=== PATIENT | male | born 1970 | race Caucasian/White ===

== ENCOUNTER 2016-09-28 10:00 | Emergency (ER) | payer SELFPAY ==
[~2016-09-28] VITALS: Ht 185.4 cm; Wt 90.0 kg
[~2016-09-28 10:00] MED LIST: Z.0.NO CURRENT MEDS
[2016-09-28 10:01] VITALS: BP 129/60; PULSE 69; RESP 17; TEMP 98.6; O2SAT 98
[2016-09-28] MEDS ORDERED: SODIUM CHLOR 0.9% 1000 ML INJ 1,000 ML IV SCH (10:31)
[2016-09-28] MEDS ORDERED: ONDANSETRON HCL 4 MG/2 ML VIAL IVP ONE (10:45)
[2016-09-28] MEDS ORDERED: SODIUM CHLORIDE 0.9% FLUSH 10 ML FLUSH IV FLUSH PRN (10:45)
[2016-09-28] MEDS ORDERED: MORPHINE SULFATE 4 MG/ML INJ IV PUSH ONE (10:45)
[2016-09-28 11:03] LABS: AUTOMATED NEUTROPHIL # 3.9 TH/MM3 (1.8-7.7); BASOPHIL % 0.5 % (0.0-2.0); EOSINOPHIL # 0.3 TH/MM3 (0-0.4); EOSINOPHIL % 5.9 % (0.0-4.0); HEMATOCRIT 40.7 % (39.0-51.0); HEMO FLAGS DIFF FINAL; LYMPH % 19.5 % (9.0-44.0); LYMPHOCYTE # 1.1 TH/MM3 (1.0-4.8); MEAN CORPUSCULAR HEMOGLOBIN 29.3 PG (27.0-34.0); MONO % 7.5 % (0.0-8.0); NEUT % 66.6 % (16.0-70.0); PLATELET COUNT 173 TH/MM3 (150-450); RED BLOOD COUNT 4.73 MIL/MM3 (4.50-5.90); RED CELL DISTRIBUTION WIDTH 13.7 % (11.6-17.2); WHITE BLOOD COUNT 5.8 TH/MM3 (4.0-11.0)
--- NOTE | 2016-09-28 11:08 | PD ---
HPI Chief Complaint: Abdominal Pain Time Seen by Provider: 10:24 Travel History International Travel<30 days: No Contact w/Intl Traveler<30days: No Traveled to known affect area: No History of Present Illness HPI Patient is a 46 year old male who presents to emergency room with complaints of right-sided flank pain with hematuria, reports that since 2 PM yesterday, he has been having intermittent flank pain. Patient reports that he has been feeling subjective fevers and chills, that he feels lightheaded. Denies any nausea or vomiting or constipation, patient denies history of kidney stones in the past. Patient denies dysuria, urinary urgency and frequency. PFSH Past Medical History Blood Disorders: No Cancer: No Cardiovascular Problems: No Endocrine: No Genitourinary: No Immune Disorder: No Musculoskeletal: No Neurologic: No Psychiatric: No Respiratory: No Past Surgical History Oral Surgery: Yes Family History Family Hypercholesterolemia: Yes Social History Alcohol Use: No Tobacco Use: No Substance Use: No Allergies-Medications (Allergen,Severity, Reaction): Coded Allergies: Garlic (Verified Allergy, Severe, 09/28/16) [place] Oil (Verified Allergy, Severe, 09/28/16) Reported Meds & Prescriptions Reported Meds & Active Scripts Active Ibuprofen 600 Mg Tab 600 Mg PO Q6H PRN Reported No Current Meds (Miscellaneous Medication) Misc Review of Systems General / Constitutional: No: Fever Eyes: No: Visual changes HENT: No: Headaches Cardiovascular: No: Chest Pain or Discomfort Respiratory: No: Shortness of Breath Gastrointestinal: Positive: Abdominal Pain, No: Nausea, Vomiting Genitourinary: Positive: Hematuria, Flank Pain, No: Dysuria Musculoskeletal: No: Pain Skin: No Rash Neurologic: No: Weakness Psychiatric: No: Depression Endocrine: No: Polydipsia Hematologic/Lymphatic: No: Easy Bruising Physical Exam Narrative GENERAL: Moderate distress SKIN: Focused skin assessment warm/dry. HEAD: Atraumatic. Normocephalic. EYES: Pupils equal and round. No scleral icterus. No injection or drainage. ENT: No nasal bleeding or discharge. Mucous membranes pink and moist. NECK: Trachea midline. No JVD. CARDIOVASCULAR: Regular rate and rhythm. No murmur appreciated. RESPIRATORY: No accessory muscle use. Clear to auscultation. Breath sounds equal bilaterally. GASTROINTESTINAL: Abdomen soft, non-tender, nondistended. Hepatic and splenic margins not palpable. Patient with right-sided flank pain on exam MUSCULOSKELETAL: No obvious deformities. No clubbing. No cyanosis. No edema. NEUROLOGICAL: Awake and alert. No obvious cranial nerve deficits. Motor grossly within normal limits. Normal speech. PSYCHIATRIC: Appropriate mood and affect; insight and judgment normal. Data Data Last Documented VS Vital Signs Date Time Temp Pulse Resp B/P Pulse Ox O2 Delivery O2 Flow Rate FiO2 09/28/16 10:01 98.6 69 17 129/60 98 Orders Complete Blood Count With Diff (09/28/16 10:31) Comprehensive Metabolic Panel (09/28/16 10:31) Lipase (09/28/16 10:31) Prothrombin Time / Inr (Pt) (09/28/16 10:31) Act Partial Throm Time (Ptt) (09/28/16 10:31) Urinalysis - C+S If Indicated (09/28/16 10:31) Ct Abd/Pel W/O Iv Contrast (09/28/16 10:31) Iv Access Insert/Monitor (09/28/16 10:31) Ecg Monitoring (09/28/16 10:31) Oximetry (09/28/16 10:31) Morphine Inj (Morphine Inj) (09/28/16 10:45) Ondansetron Inj (Zofran Inj) (09/28/16 10:45) Sodium Chlor 0.9% 1000 Ml Inj (Ns 1000 M (09/28/16 10:31) Sodium Chloride 0.9% Flush (Ns Flush) (09/28/16 10:45) Sodium Chlor 0.9% 1000 Ml Inj (Ns 1000 M (09/28/16 12:00) Labs Laboratory Tests Test 09/28/16 09/28/16 10:35 10:40 Urine Color YELLOW Urine Turbidity CLEAR Urine pH 6.0 Urine Specific [place] 1.035 Urine Protein 30 mg/dL Urine Glucose (UA) NEG mg/dL Urine Ketones 150 mg/dL Urine Occult Blood LARGE Urine Nitrite NEG Urine Bilirubin NEG Urine Urobilinogen 2.0 MG/DL Urine Leukocyte Esterase NEG Urine RBC /hpf Urine WBC 3 /hpf Urine Squamous Epithelial <1 /hpf Cells Urine Calcium Oxalate Crystals OCC /hpf Urine Mucus FEW /lpf Microscopic Urinalysis Comment CULT NOT INDICATED White Blood Count 5.8 TH/MM3 Red Blood Count 4.73 MIL/MM3 Hemoglobin 13.9 GM/DL Hematocrit 40.7 % Mean Corpuscular Volume 86.0 FL Mean Corpuscular Hemoglobin 29.3 PG Mean Corpuscular Hemoglobin 34.0 % Concent Red Cell Distribution Width 13.7 % Platelet Count 173 TH/MM3 Mean Platelet Volume 7.9 FL Neutrophils (%) (Auto) 66.6 % Lymphocytes (%) (Auto) 19.5 % Monocytes (%) (Auto) 7.5 % Eosinophils (%) (Auto) 5.9 % Basophils (%) (Auto) 0.5 % Neutrophils # (Auto) 3.9 TH/MM3 Lymphocytes # (Auto) 1.1 TH/MM3 Monocytes # (Auto) 0.4 TH/MM3 Eosinophils # (Auto) 0.3 TH/MM3 Basophils # (Auto) 0.0 TH/MM3 CBC Comment DIFF FINAL Differential Comment Prothrombin Time 12.1 SEC Prothromb Time International 1.1 RATIO Ratio Activated Partial 25.8 SEC Thromboplast Time Sodium Level 141 MEQ/L Potassium Level 3.6 MEQ/L Chloride Level 104 MEQ/L Carbon Dioxide Level 28.6 MEQ/L Anion Gap 8 MEQ/L Blood Urea Nitrogen 8 MG/DL Creatinine 0.74 MG/DL Estimat Glomerular Filtration 115 ML/MIN Rate Random Glucose 73 MG/DL Calcium Level 8.2 MG/DL Total Bilirubin 0.9 MG/DL Aspartate Amino Transf 66 U/L (AST/SGOT) Alanine Aminotransferase 43 U/L (ALT/SGPT) Alkaline Phosphatase 43 U/L Total Protein 6.7 GM/DL Albumin 3.8 GM/DL Lipase 188 U/L [facility] Medical Decision Making Medical Screen Exam Complete: Yes Emergency Medical Condition: Yes Interpretation(s) Vital Signs Date Time Temp Pulse Resp B/P Pulse Ox O2 Delivery O2 Flow Rate FiO2 09/28/16 10:01 98.6 69 17 129/60 98 Differential Diagnosis Pyelonephritis, cystitis, kidney stone, muscle skeletal pain, electrolyte abnormality Narrative Course 46-year-old male who presents to emergency room with complaints of right-sided flank pain with hematuria which started yesterday around 2 PM. Patient denies history of kidney stones in the past, denies any urinary urgency or frequency at this time. He does appear uncomfortable. Plan to obtain lab work, will obtain CT the abdomen and pelvis for evaluation of possible kidney stone. IV fluids as well as pain medications will be administered. Vital Signs Date Time Temp Pulse Resp B/P Pulse Ox O2 Delivery O2 Flow Rate FiO2 09/28/16 10:01 98.6 69 17 129/60 98 Laboratory Tests Test 09/28/16 09/28/16 10:35 10:40 Urine Color YELLOW (YELLW/STRAW) Urine Turbidity CLEAR (CLEAR) Urine pH 6.0 (5.0-8.5) Urine Specific [place] 1.035 (1.002-1.035) Urine Protein 30 mg/dL (NEG-TRACE) Urine Glucose (UA) NEG mg/dL (NEG) Urine Ketones 150 mg/dL (NEG) Urine Occult Blood LARGE (NEG) Urine Nitrite NEG (NEG) Urine Bilirubin NEG (NEG) Urine Urobilinogen 2.0 MG/DL (LESS THAN 2.0) Urine Leukocyte Esterase NEG (NEG) Urine RBC /hpf (0-3) Urine WBC 3 /hpf (0-5) Urine Squamous Epithelial <1 /hpf (0-5) Cells Urine Calcium Oxalate Crystals OCC /hpf (NONE) Urine Mucus FEW /lpf (OCC) Microscopic Urinalysis Comment CULT NOT INDICATED White Blood Count 5.8 TH/MM3 (4.0-11.0) Red Blood Count 4.73 MIL/MM3 (4.50-5.90) Hemoglobin 13.9 GM/DL (13.0-17.0) Hematocrit 40.7 % (39.0-51.0) Mean Corpuscular Volume 86.0 FL (80.0-100.0) Mean Corpuscular Hemoglobin 29.3 PG (27.0-34.0) Mean Corpuscular Hemoglobin 34.0 % Concent (32.0-36.0) Red Cell Distribution Width 13.7 % (11.6-17.2) Platelet Count 173 TH/MM3 (150-450) Mean Platelet Volume 7.9 FL (7.0-11.0) Neutrophils (%) (Auto) 66.6 % (16.0-70.0) Lymphocytes (%) (Auto) 19.5 % (9.0-44.0) Monocytes (%) (Auto) 7.5 % (0.0-8.0) Eosinophils (%) (Auto) 5.9 % (0.0-4.0) Basophils (%) (Auto) 0.5 % (0.0-2.0) Neutrophils # (Auto) 3.9 TH/MM3 (1.8-7.7) Lymphocytes # (Auto) 1.1 TH/MM3 (1.0-4.8) Monocytes # (Auto) 0.4 TH/MM3 (0-0.9) Eosinophils # (Auto) 0.3 TH/MM3 (0-0.4) Basophils # (Auto) 0.0 TH/MM3 (0-0.2) CBC Comment DIFF FINAL Differential Comment Prothrombin Time 12.1 SEC (9.8-11.6) Prothromb Time International 1.1 RATIO Ratio Activated Partial 25.8 SEC Thromboplast Time (24.3-30.1) Sodium Level 141 MEQ/L (136-145) Potassium Level 3.6 MEQ/L (3.5-5.1) Chloride Level 104 MEQ/L (98-107) Carbon Dioxide Level 28.6 MEQ/L (21.0-32.0) Anion Gap 8 MEQ/L (5-15) Blood Urea Nitrogen 8 MG/DL (7-18) Creatinine 0.74 MG/DL (0.60-1.30) Estimat Glomerular Filtration 115 ML/MIN Rate (>89) Random Glucose 73 MG/DL (74-106) Calcium Level 8.2 MG/DL (8.5-10.1) Total Bilirubin 0.9 MG/DL (0.2-1.0) Aspartate Amino Transf 66 U/L (15-37) (AST/SGOT) Alanine Aminotransferase 43 U/L (12-78) (ALT/SGPT) Alkaline Phosphatase 43 U/L (45-117) Total Protein 6.7 GM/DL (6.4-8.2) Albumin 3.8 GM/DL (3.4-5.0) Lipase 188 U/L (73-393) Last Impressions Abdomen/Pelvis CT 09/28/16 1031 Signed Impressions: Service Date/Time: September 11:00 - CONCLUSION: 1. Nonobstructing 7 x 6 x 9 mm calcified calculus in the inferior pole the right kidney. No additional renal calculi or evidence for obstructive uropathy. 2. Normal appendix. 1. Eduardo Allen MD All labs and studies reviewed with patient in detail. Patient was given a copy of his studies. he will follow up with pcp and urologist and will return to ER as needed Diagnosis Primary Impression: Kidney stone on right side Additional Impressions: Hematuria Dehydration Referrals: Mahesh Jefferson DO Patient Instructions: Narcotic given in the ED, General Instructions Departure Forms: Tests/Procedures, Work Release Enter return to work date: Sep 29, 2016 Additional Instructions: Please return to ER if symptoms worsen or progress Please follow up with Urologist as soon as possible, bring your radiology report to your doctor's office for follow up appointment Return to ER as needed Med/Other Pt SpecificInfo: Prescription(s) given Scripts Ibuprofen 600 Mg [id number] Mg PO Q6H PRN (Pain/Inflammation) #40 TAB Ref 0 Prov:Odalis Mccartney DO 09/28/16 Disposition: 01 DISCHARGE HOME Condition: Stable Odalis Mccartney DO Sep 28, 2016 11:08 Odalis Mccartney DO Sep 28, 2016 11:08
[2016-09-28 11:12] LABS: APTT (PATIENT) 25.8 SEC (24.3-30.1); INTERNATIONAL NORMALIZED RATIO 1.1 RATIO; PROTHROMBIN TIME - PATIENT 12.1 SEC (9.8-11.6)
[2016-09-28 11:14] LABS: ANION GAP 8 MEQ/L (5-15); AST (GOT) 66 U/L (15-37); BICARBONATE 28.6 MEQ/L (21.0-32.0); BLOOD UREA NITROGEN 8 MG/DL (7-18); CHLORIDE 104 MEQ/L (98-107); GLOMERULAR FILTRATION RATE 115 ML/MIN (>89); POTASSIUM 3.6 MEQ/L (3.5-5.1); SODIUM (NA) 141 MEQ/L (136-145)
[2016-09-28 11:16] LABS: ALT (GPT) 43 U/L (12-78)
[2016-09-28 11:18] LABS: ALKALINE PHOSPHATASE 43 U/L (45-117); TOTAL BILIRUBIN ADULT 0.9 MG/DL (0.2-1.0)
[2016-09-28 11:42] LABS: BLOOD, URINE LARGE (NEG); CALCIUM OXALATE CRYSTALS,URINE OCC /hpf; COMMENT (UR) CULT NOT INDICATED; CULTURE IF INDICATED CULT NOT INDICATED; GLUCOSE,URINE NEG (NEG); KETONE, URINE 150 mg/dL (NEG); MUCUS URINE FEW /lpf (OCC); NITRITE,URINE NEG (NEG); SQUAMOUS EPITHELIAL CELL URINE <1 /hpf (0-5); URINE COLOR YELLOW (YELLW/STRAW)
[2016-09-28] MEDS ORDERED: SODIUM CHLOR 0.9% 1000 ML INJ 1,000 ML IV ONE (12:00)
--- NOTE | 2016-09-28 12:10 | RADRPT ---
EXAM DATE/TIME: 09/28/2016 11:00 [facility] COMPARISON: No previous studies available for comparison. INDICATIONS : Lower abdominal pain and blood in urine. ORAL CONTRAST: No oral contrast ingested. RADIATION DOSE: 16.47 CTDIvol (mGy) MEDICAL HISTORY : None SURGICAL HISTORY : None. ENCOUNTER: Initial ACUITY: 2 days PAIN SCALE: 4/10 LOCATION: Bilateral lower quadrant TECHNIQUE: Volumetric scanning of the abdomen and pelvis was performed. Using automated exposure control and ad justment of the mA and/or kV according to patient size, radiation dose was kept as low as reasonably achievable to obtain optimal diagnostic quality images. FINDINGS: LOWER LUNGS: The visualized lower lungs are clear. LIVER: Homogeneous density without lesion. There is no dilation of the biliary tree. No calcified gallston es. SPLEEN: Normal size without lesion. PANCREAS: Within normal limits. KIDNEYS: Kidneys are symmetrical in size without evidence for contour deforming mass or hydronephrosis. There is a 7 x 6 x 9 mm calcified calculus in the inferior pole of the right kidney. The ureters are normal in caliber without evidence for radiopaque renal calculi. ADRENAL GLANDS: Within normal limits. VASCULAR: There is no aortic aneurysm. BOWEL/MESENTERY: Appendix is visualized and normal in appearance.. Bowel is grossly unremarkable without evidence for obstruction. ABDOMINAL WALL: Within normal limits. RETROPERITONEUM: Nonspecific subcentimeter retroperitoneal nodes extending caudally from the level of the SMA origin. These nodes do not meet CT size criteria but are notable for number. BLADDER: Bladder is decompressed without evidence for intraluminal calcified calculus. REPRODUCTIVE: Within normal limits. INGUINAL: There is no lymphadenopathy or hernia. MUSCULOSKELETAL: Within normal limits for patient age. CONCLUSION: 1. Nonobstructing 7 x 6 x 9 mm calcified calculus in the inferior pole the right kidney. No additiona l renal calculi or evidence for obstructive uropathy. 2. Normal appendix. 1. Eduardo Allen MD on September 28, 2016 at 11:36 Board Certified Radiologist. This report was verified electronically.
[2016-09-28] MEDS ORDERED: IBUP-232 PO (13:11)
[2016-09-28 13:35] VITALS: BP 116/86
== END 2016-09-28 13:42 | disposition home or self-care (01) ==
LOC: NEPE 10:00
DX: N20.0 Calculus of kidney (principal); E86.0 Dehydration
CPT/HCPCS: 74176; 80053; 81001; 83690; 85025; 85610; 85730; 96374; 96375; 99285; J2270; J2405; J7030

== ENCOUNTER 2016-10-17 15:37 | Emergency (ER) | payer OTHER ==
[~2016-10-17] VITALS: Ht 185.4 cm; Wt 100.0 kg
[~2016-10-17 15:37] MED LIST changes: +IBUP-232 PO
[2016-10-17 15:40] VITALS: BP 117/63; PULSE 77; RESP 16; TEMP 98.2; O2SAT 99
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
[2016-10-17] MEDS ORDERED: SODIUM CHLORIDE 0.9% FLUSH 10 ML FLUSH IVF PRN (16:00)
[2016-10-17] MEDS ORDERED: MORPHINE SULFATE 4 MG/ML INJ IV ONE (16:00)
[2016-10-17 16:10] VITALS: O2SAT 100
[2016-10-17 16:25] LABS: BASOPHIL % 0.7 % (0.0-2.0); EOSINOPHIL # 0.2 TH/MM3 (0-0.4); EOSINOPHIL % 2.3 % (0.0-4.0); HEMATOCRIT 40.3 % (39.0-51.0); HEMO FLAGS DIFF FINAL; LYMPH % 17.9 % (9.0-44.0); LYMPHOCYTE # 1.3 TH/MM3 (1.0-4.8); MEAN CELL VOLUME 86.4 FL (80.0-100.0); MEAN CORPUSCULAR HEMOGLOBIN 29.4 PG (27.0-34.0); MONO % 8.2 % (0.0-8.0); NEUT % 70.9 % (16.0-70.0); PLATELET COUNT 202 TH/MM3 (150-450); RED BLOOD COUNT 4.66 MIL/MM3 (4.50-5.90); RED CELL DISTRIBUTION WIDTH 13.9 % (11.6-17.2)
[2016-10-17 16:35] LABS: APTT (PATIENT) 25.4 SEC (24.3-30.1); PROTHROMBIN TIME - PATIENT 11.4 SEC (9.8-11.6)
[2016-10-17 16:54] LABS: BICARBONATE 31.5 MEQ/L (21.0-32.0); POTASSIUM 3.9 MEQ/L (3.5-5.1)
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
[2016-10-17] MEDS ORDERED: IOHEXOL 350 MG/ML 10 ML VIAL (for RAD DIAG) IV ONE (17:38)
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
[2016-10-17] MEDS ORDERED: MORPHINE SULFATE 4 MG/ML INJ IV PUSH ONE (18:00)
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
[2016-10-17] MEDS ORDERED: HYDR-3533 PO (19:00)
[2016-10-17] MEDS ORDERED: ROBA500T PO (19:00)
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
== END 2016-10-17 19:39 | disposition home or self-care (01) ==
LOC: NEPD 15:37
DX: S80.01XA Contusion of right knee, initial encounter (principal); M54.5 Low back pain; V13.4XXA Pedal cycle driver injured in collision with car, pick-up truck or van in traffic accident, initial encounter
CPT/HCPCS: 70450; 71260; 72125; 72128; 72131; 73564; 74177; 80048; 85025; 85610; 85730; 86850; 86900; 86901; 96374; 96376; 99285; J2270; Q9967